=== PATIENT | female | born 1995 | race Caucasian/White ===

== ENCOUNTER 2024-03-20 17:41 | Emergency (ER) | payer BC, SELFPAY ==
--- NOTE | ~2024-03-20 | XR_ITS ---
EXAMINATION: XR HAND, RIGHT CLINICAL INFORMATION: Pain COMPARISON: None TECHNIQUE: 3 views of the hand FINDINGS: No fracture or dislocation. Joint spaces are maintained. No cortical erosion. Soft tissues are unremarkable. XR/XR hand RT min 3V IMPRESSION: No acute osseous abnormality. Electronically signed by: Grazyna Saez MD 03/20/2024 07:09 PM EDT RP
[2024-03-20 18:26] VITALS: BP 126/83; PULSE 105; RESP 18; TEMP 36.9; O2SAT 98; BMI 30.8
--- NOTE | 2024-03-20 18:27 | ED_ITS ---
HPI - General Adult General Chief complaint: Extremity Injury, Upper Stated complaint: hand inj s/p fall Time Seen by Provider: 03/20/24 19:15 Source: patient, RN notes reviewed and old records reviewed Mode of arrival: ambulatory Limitations: no limitations History of Present Illness ED Provider: Yuri HPI narrative: 28-year-old female presents for evaluation of right hand pain. Patient reports that she tripped and fell earlier today her home. She outstretched her hand has had pain to the hand. She indicates the area of the source MCP joints. Denies any wrist pain. Denies any head trauma or loss of consciousness She describes the fall as nonsyncopal and reports that she tripped going down the porch steps Related Data Allergies Allergy/AdvReac Type Severity Reaction Status Date / Time azithromycin Allergy Hives Verified 03/20/24 18:29 Latex, Natural Rubber Allergy Swelling Verified 03/20/24 18:29 Review of Systems Constitutional: Constitutional: Denies body ache(s), Denies chills and Denies fever(s) Eyes: Eyes: Denies blurry vision Cardiovascular: Cardiovascular: Denies chest pain and Denies dyspnea Respiratory: Respiratory: Denies cough and Denies dyspnea Gastrointestinal: Gastrointestinal: Denies abdominal pain, Denies nausea and Denies vomiting Musculoskeletal: Musculoskeletal: Denies deformity, Reports arthralgias, Re ports joint swelling and Reports limited range of motion Integumentary/Breasts: Skin/Breast: Denies rash PMFSH Social History Social History Advance Directives: No Advance Directives Information Provided: No Do you have a plan to hurt others: No Plan Physical Exam ED Vital Signs: Vital Signs - 24 hr 03/20/24 18:26 Temperature 98.4 F Pulse Rate 105 H Respiratory Rate 18 Blood Pressure 126/83 Pulse Oximetry 98 Oxygen Delivery Method Room Air BMI result Body Mass Index 30.8 Const General: healthy appearing, comfortable, no acute distress, alert and awake Nutritional Appearance: well nourished Orientation/consciousness: patient oriented x3 HENMT Head: Yes normocephalic and Yes atraumatic Eyes Eyelids: Yes eyelids normal Conjunctivae: conjunctivae normal Sclerae: sclerae normal Corneas: corneas normal Pupils: Equal, round and reactive pupils present EOM: EOMs intact bilaterally Neck Neck: Yes full ROM Resp Effort & Inspection: normal respiratory effort, able to speak in complete sentences and not labored Skin General skin exam: elasticity normal Neuro General: patient oriented x3 Cranial nerves: Yes Equal, round and reactive pupils present and Yes Bilaterally intact EOM present Cognition (Neuro): normal cognition Extrem Other: Mild edema to the right 4th and 5th distal metacarpals and MCP joints. This area is tender to palpation without deformity. Patient has full range of motion to all fingers of the right hand. There is no right wrist tenderness including over the scaphoid region. No elbow tenderness. Distal sensation and capillary refill intact play right upper extremity Course Course Course Narrative: RME, this is a rapid medical exam performed by Luis Welch please refer to primary provider for complete H&P- 28 year old female presents for evaluation of right hand pain in the area of the right 4th and 5th MCP joints after a fall. She denies any wrist pain or swelling. Plan for x-ray Medical Decision Making Medical Decision Making [facility] [place] Narrative: Patient had a fall on outstretched hand, she has no apparent injury to the right wrist, plan for x-rays of the right hand Differential Diagnosis Differential Diagnoses: The differential diagnosis associated with the pre sentation includes Right hand contusion Dislocation Fracture Sprain Independent Interpretation I performed an independent interpretation of an: Plain X-Ray (Agree with Radiology interpretation no obvious fracture of the right hand) Radiology Impression Discussion of test interpretation with radiology: I have reviewed the radiologist's reading. Radiologist Impression: XR/XR hand RT min 3V IMPRESSION: No acute osseous abnormality. Electronically signed by: Grazyna Saez MD 03/20/2024 07:09 PM EDT RP Discharge Plan Discharge Clinical Impression: Hand pain, right Patient Disposition: Home, Self-Care Instructions: Hand Sprain (ED) Additional Instructions: Your x-ray did not show any evidence of fractures or dislocations. Use ibuprofen/Tylenol for pain You may ice the area every 4 hours for 10-15 minutes Follow-up with your primary doctor, return for new or worsening symptoms Stand Alone Forms: Work/School Release Print Language: Com[place]an
[2024-03-20 19:33] VITALS: BP 126/83; PULSE 105; RESP 18; TEMP 36.9; O2SAT 98
== END 2024-03-20 19:33 | disposition home or self-care (01) ==
PROVIDERS: Emergency Provider Emergency Medicine
DX: M79.641 Pain in right hand (principal); Z91.81 History of falling
CPT/HCPCS: 73130; 99282; 99283